=== PATIENT | male | born 2000 | race Caucasian/White ===

== ENCOUNTER 2022-12-09 14:17 | Emergency (ER) | payer OTHER ==
[2022-12-09] MEDS ORDERED: KETOROLAC TROMETHAMINE 30 MG/1 ML VIAL IM ONE (14:39)
[2022-12-09 14:50] VITALS: BP 135/86; PULSE 79; RESP 16; TEMP 97.9; BMI 28.2
[2022-12-09] MEDS ORDERED: KETOROLAC TROMETHAMINE 30 MG/1 ML VIAL ONE (15:06)
== END 2022-12-09 17:06 | disposition home or self-care (01) ==
LOC: FER 14:17
PROC: 2W3DX1Z Immobilization of Left Lower Arm using Splint (ICD-10-PCS; principal; 2022-12-09)
PROC: 3E0233Z Introduction of Anti-inflammatory into Muscle, Percutaneous Approach (ICD-10-PCS; 2022-12-09)
DX: S59.902A Unspecified injury of left elbow, initial encounter (principal); M79.632 Pain in left forearm; M25.532 Pain in left wrist; W17.89XA Other fall from one level to another, initial encounter; Y93.67 Activity, basketball
CPT/HCPCS: 73070-TC-LT-FY; 73090-TC-LT-FY; 73110-TC-LT-FY; 99284-25